=== PATIENT | male | born 1995 | race American Indian/Alaskan Native ===

== ENCOUNTER 2018-11-16 23:13 | Emergency (ER) | payer OTHER ==
[2018-11-16] MEDS ORDERED: MORPHINE ONE (23:33)
[2018-11-16] MEDS ORDERED: MORPHINE IM ONE (23:34)
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
[2018-11-17] MEDS ORDERED: DILAUDID IV ONE ×3 (00:49→03:00)
[2018-11-17] MEDS ORDERED: ANCEF/NS 1 GM/50 ML 1 GM/50 ML BAG IV ONE (00:49)
[2018-11-17] MEDS ORDERED: BOOSTRIX IM ONE (00:57)
[2018-11-17] MEDS ORDERED: NACL 0.9% 1,000 ML IR ONE (01:11)
[2018-11-17] MEDS ORDERED: NACL 0.9% 1000 ML 1,000 ML ONE (01:15)
[2018-11-17] MEDS ORDERED: XYLOCAINE 1% 20 mL ONE (02:37)
[2018-11-17] MEDS ORDERED: NACL 0.9% 500 ML IR ONE (02:37)
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
[2018-11-17 06:17] VITALS: BP 144/90
== END 2018-11-17 06:17 | disposition home or self-care (01) ==
LOC: ED 23:13
DX: S62.613B Displaced fracture of proximal phalanx of left middle finger, initial encounter for open fracture (principal); E11.9 Type 2 diabetes mellitus without complications; F17.200 Nicotine dependence, unspecified, uncomplicated; F12.10 Cannabis abuse, uncomplicated; W34.00XA Accidental discharge from unspecified firearms or gun, initial encounter; Y93.89 Activity, other specified; Y92.89 Other specified places as the place of occurrence of the external cause; Y99.8 Other external cause status
CPT/HCPCS: 73120; 90471; 90715; 96374; 96375; 96376; 99283; J0690; J1170; J2270; J7030